=== PATIENT | male | born 1975 | race African-American/Black ===

== ENCOUNTER 2020-05-30 14:19 | Outpatient (CLI) | payer OTHER ==
--- NOTE | 2020-05-30 17:44 | RAD ---
RIGHT ANKLE 2 VIEWS: Date: 05/30/2020 HISTORY: Disability exam. FINDINGS: Postoperative changes are noted with two screws placed through the medial malleolus. Some minimal art hritic change of the ankle joint is seen. No significant joint space narrowing. There is anterior tib ial spur formation. IMPRESSION: 1. Postoperative changes with some mild arthritic change of the ankle. 2. Small Achilles spur. POS: [facility]ANDA
== END 2020-05-30 14:20 | disposition home or self-care (01) ==
LOC: BICRAD 14:19
PROVIDERS: ATTEND Internal Medicine
DX: Z02.71 Encounter for disability determination (principal); M77.8 Other enthesopathies, not elsewhere classified

== ENCOUNTER 2022-12-13 17:30 | Emergency (ER) | payer SELFPAY ==
[2022-12-13] MEDS ORDERED: traMADol HCl 50 MG TAB ONE (18:39)
== END 2022-12-13 19:24 | disposition home or self-care (01) ==
LOC: ERS 17:30
DX: S83.92XA Sprain of unspecified site of left knee, initial encounter (principal); I10 Essential (primary) hypertension; F17.210 Nicotine dependence, cigarettes, uncomplicated; W10.8XXA Fall (on) (from) other stairs and steps, initial encounter; Y93.89 Activity, other specified